=== PATIENT | male | born 1990 | race Caucasian/White ===

== ENCOUNTER 2024-12-06 23:13 | Emergency (ER) | payer BC, MEDICAID, SELFPAY ==
[2024-12-06 23:14] VITALS: BP 117/78; PULSE 95; RESP 18; TEMP 37.1; O2SAT 96; BMI 22.4
--- NOTE | 2024-12-06 23:32 | ED_ITS ---
HPI - Overdose 2 General: Chief Complaint: Overdose Stated Complaint: OD Time Seen by Provider: 12/06/24 23:32 History of Present Illness: Patient is a pleasant 34-year-old gentleman with history of opioid addiction. Patient was incarcerated for 1.5 months, and recently released to [facility]. He did have leftover fentanyl, what he describes as 1/10 of a gram, and half of it left. He did consume this fentanyl as described by snorting it. He then took a shower. He recalls all of the events of pain in his short up in the shower, cleaning his body. He then had full LOC without injury. He was given Narcan x 6 mg intranasally on the scene. He is awake at bedside without any complaints other than embarrassment. He highly desires to stop opioid addiction, and return to his rehabilitation facility. He is remorseful over his events tonight. Related Data Allergies Allergy/AdvReac Type Severity Reaction Status Date / Time No Known Allergies Allergy Verified 12/06/24 23:18 Review of Systems 2 Const: Denies: fever(s) or chills Eyes: Denies: change in vision or blurry vision ENMT: Denies: throat pain or odynophagia Card: Reports: palpitations; Denies: chest pain Resp: Denies: dyspnea or productive cough GI: Denies: abdominal pain, nausea or vomiting : Denies: flank pain or difficulty urinating Musc: Denies: neck pain or back pain Neuro: Denies: headache(s) or sensory changes Psych: Denies: anxiety or depression Physical Exam 2 Const: COMMON NORMALS: patient oriented x3 HENMT: COMMON NORMALS: normocephalic and atraumatic HEAD & SCALP: n ormocephalic and atraumatic Eye: COMMON NORMALS: Equal, round and reactive pupils present, EOMs intact bilaterally and no scleral icterus PUPIL: Yes Equal, round and reactive pupils present Neck/C-Spine: COMMON NORMALS: full ROM, no lymphadenopathy and no JVD Lymph: LYMPHATIC: no lymphadenopathy noted Chest: COMMONS NORMALS: normal inspection of the chest Resp: COMMON NORMALS: normal respiratory effort and clear to auscultation bilaterally AUSCULTATION: clear to auscultation bilaterally Cardio: COMMON NORMALS: no JVD and regular rate RATE: regular rate GI: COMMON NORMALS: Normal to inspection, nondistended, normoactive bowel sounds present and non-tender : COMMON NORMALS: Yes no CVA tenderness BLADDER/KIDNEY EXAM: Yes no CVA tenderness Back/Pelvis: COMMON NORMALS: no CVA tenderness Extremity: COMMON NORMALS: normal to inspection and full ROM Neuro: COMMON NORMALS: patient oriented x3 and CN's II-XII intact bilaterally Psych: COMMON NORMALS: mental status grossly normal and Normal thought process present THOUGHT PROCESS: Normal thought process present Skin: COMMON NORMALS: no rashes or lesions noted and no wounds GENERAL SKIN EXAM: no rashes or lesions noted Course 2 Vital Signs: Vital signs: Vital Signs Temperature 98.7 F 12/06/24 23:14 Pulse Rate 108 H 12/07/24 00:13 Respiratory Rate 16 12/07/24 00:13 Blood Pressure 116/66 12/07/24 00:13 Pulse Oximetry 97 12/07/24 00:13 Oxygen Delivery Me thod Room Air 12/07/24 00:13 MDM - Overdose Medical Decision Making Patient is 34-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 He is awake, alert on my evaluation. Will obtain routine laboratory data, and urinalysis with drugs of abuse screen. Patient is remorseful regarding his choices tonight. Will continue to monitor for further decision-making. Lab Data 12/07/24 00:08 12/07/24 00:08 Laboratory Results WBC 9.20 10^3/uL (3.29-11.43) 12/07/24 00:08 RBC 4.51 10^6/uL (3.85-5.65) 12/07/24 00:08 Hgb 12.10 g/dL (11.27-16.99) 12/07/24 00:08 Hct 38.1 % (37-53) 12/07/24 00:08 MCV 84.5 fl (82-101) 12/07/24 00:08 MCH 26.8 pg (27-33) L 12/07/24 00:08 MCHC 31.8 g/dL (30-55) 12/07/24 00:08 RDW 14.0 % (12.1-15.1) 12/07/24 00:08 Plt Count 224 10^3/cmm (157-399) 12/07/24 00:08 MPV 8.3 fL (7.4-10.4) 12/07/24 00:08 Neut % (Auto) 74.9 % 12/07/24 00:08 Lymph % (Auto) 14.5 % 12/07/24 00:08 [place] % (Auto) 4.7 % 12/07/24 00:08 Eos % (Auto) 5.1 % 12/07/24 00:08 Baso % (Auto) 0.5 % 12/07/24 00:08 Neut # (Auto) 6.89 10^3/uL (1.8-7.7) 12/07/24 00:08 Lymph # (Auto) 1.3 10^3/uL (0.8-4.8) 12/07/24 00:08 [place] # (Auto) 0.4 10^3/uL (0.2-0.9) 12/07/24 00:08 Eos # (Auto) 0.5 10^3/uL (0.0-0.8) 12/07/24 00:08 Baso # (Auto) 0.1 10^3/uL (0.0-0.1) 12/07/24 00:08 Nucleated RBC % (auto) 0 % 12/07/24 00:08 Nucleated RBCs # 0.0 /100WBC 12/07/24 00:08 Sodium 136 mmol/L (136-145) 12/07/24 00:08 Potassium 3.6 mmol/L (3.5-5.1) 12/07/24 00:08 Chloride 99 mmol/L (98-107) 12/07/24 00:08 Carbon Dioxide 28 mmol/L (22-29) 12/07/24 00:08 Anion Gap 12.6 (5-19) 12/07/24 00:08 BUN 18 mg/dL (6-20) 12/07/24 00:08 Creatinine 0.6 mg/dL (0.7-1.2) L 12/07/24 00:08 GFR Calculation 156.1 mL/min (90-130) H 12/07/24 00:08 Glucose 119 mg/dL (65-115) H 12/07/24 00:08 Calculated Osmolality 285 mOsm/kg (285-295) 12/07/24 00:08 Calcium 8.5 mg/dL (8.5-10.5) 12/07/24 00:08 Magnesium 2.0 mg/dL (1.7-2.3) 12/07/24 00:08 Total Bilirubin 0.4 mg/dL (0.15-1.2) 12/07/24 00:08 AST 22 U/L (0-40) 12/07/24 00:08 ALT 15 U/L (0-41) 12/07/24 00:08 Alkaline Phosphatase 72 U/L (40-130) 12/07/24 00:08 Total Protein 7.0 g/dL (6.6-8.7) 12/07/24 00:08 Albumin 3.9 g/dL (3.5-5.2) 12/07/24 00:08 Globulin 3.1 g/dL (1.3-4.6) 12/07/24 00:08 No radiology studies performed this visit EKG Data EKG 1: Interpretation: nsr with normal axis, early repolarization, lvh, rate 94, qtc 405 ms Computer generated interpretation: sinus rhythm, normal ecg Discharge Plan Discharge Patient Disposition: Home Clinical Impression: Opiate misuse Accidental fentanyl overdose Qualifiers: Encounter type: initial encounter Qualified Code(s): T40.411A - Poisoning by fentanyl or fentanyl analogs, accidental (unintentional), initial encounter Drug overdose Qualifiers: Encounter type: initial encounter Injury intent: accidental or unintentional Q ualified Code(s): T50.901A - Poisoning by unspecified drugs, medicaments and biological substances, accidental (unintentional), initial encounter Condition: Stable Discharge Orders: Discharge ED (Routine); Ordered 12/07/24 Ordered By: Alison Brown Discharge Diet: Usual diet Discharge Activity: Resume usual activity Patient Instructions: Opioid Use Disorder (ED), Opioid Safety, Pain Management Activity Restrictions/Additional Instructions: Do not use opioids. Opioids have a direct relationship to loss of life, which could of happened tonight with you. Continue to seek help if you are struggling. I am thankful you are here to give these discharge instructions to. Please remember that self care, and loving yourself starts today with you. Return to ED if you need further assistance Print Language: Kosovan Coding Level of Care Code ED Road Commissioner for Rad Barnes
--- NOTE | 2024-12-06 23:57 | ECG_ITS ---
[facility] Test Date: 2024-12-07 Pat Name: Rory Aleman Department: Room: Gender: Male Exercise Specialist: : [id number] Requested By: Alison Brown Order Number: [id number] Reading MD: ALEXIS JARA Measurements Intervals [place] Rate: 94 P: 64 TX: 149 QRS: 81 QRSD: 102 T: 60 QT: 353 QTc: 444 Interpretive Statements SINUS RHYTHM No previous ECG available for comparison Electronically Signed On 12-08-2024 23:32:26 CDT by ALEXIS JARA [id number]
[2024-12-07 00:13] VITALS: BP 116/66; PULSE 108; RESP 16; O2SAT 97
[2024-12-07 00:15] LABS: Basophils # 0.1 10^3/uL (0.0-0.1); Basophils % 0.5 %; Eosinophils # 0.5 10^3/uL (0.0-0.8); Eosinophils % 5.1 %; Hematocrit 38.1 % (37-53); Lymphocytes # 1.3 10^3/uL (0.8-4.8); Lymphocytes % 14.5 %; Mean Corpuscular HGB Conc 31.8 g/dL (30-55); Mean Corpuscular Hemoglobin 26.8 pg (27-33); Mean Corpuscular Volume 84.5 fl (82-101); Mean Platelet Volume 8.3 fL (7.4-10.4); Monocytes # 0.4 10^3/uL (0.2-0.9); Monocytes % 4.7 %; Neutrophils # 6.89 10^3/uL (1.8-7.7); Neutrophils % 74.9 %; Nucleated Red Blood Cells % 0 %; Platelet Count 224 10^3/cmm (157-399); Red Blood Count 4.51 10^6/uL (3.85-5.65)
[2024-12-07 00:32] LABS: Alanine Aminotransferase 15 U/L (0-41); Albumin Level 3.9 g/dL (3.5-5.2); Alkaline Phosphatase 72 U/L (40-130); Anion Gap 12.6 (5-19); Aspartate Amino Transferase 22 U/L (0-40); Blood Urea Nitrogen 18 mg/dL (6-20); Calcium 8.5 mg/dL (8.5-10.5); Carbon Dioxide 28 mmol/L (22-29); Chloride 99 mmol/L (98-107); Globulin 3.1 g/dL (1.3-4.6); Glomerular Filtration Rate 156.1 mL/min (90-130); Glucose 119 mg/dL (65-115); Osmolality Calculated 285 mOsm/kg (285-295); Potassium 3.6 mmol/L (3.5-5.1); Sodium 136 mmol/L (136-145); Total Bilirubin 0.4 mg/dL (0.15-1.2)
[2024-12-07 01:00] VITALS: BP 112/59; PULSE 89; RESP 16; O2SAT 98
[2024-12-07 02:16] VITALS: BP 108/67; PULSE 92; RESP 16; O2SAT 95
== END 2024-12-07 02:24 | disposition home or self-care (01) ==
PROVIDERS: Emergency Provider Physician Assistant
DX: T40.411A Poisoning by fentanyl or fentanyl analogs, accidental (unintentional), initial encounter (principal); X58.XXXA Exposure to other specified factors, initial encounter
CPT/HCPCS: 80053; 83735; 85025; 93005; 99284

== ENCOUNTER → 2025-04-18 18:57 | Outpatient (BNVA) | payer BC, MEDICAID, SELFPAY | DX: S69.91XA Unspecified injury of right wrist, hand and finger(s), initial encounter (principal); X58.XXXA Exposure to other specified factors, initial encounter | CPT/HCPCS: 73110 ==